=== PATIENT | male | born 1985 | race Two or more races ===

== ENCOUNTER 2017-12-01 11:04 | Emergency (ER) | payer MEDICAID ==
[~2017-12-01] VITALS: Ht 182.9 cm; Wt 90.7 kg
[2017-12-01 11:04] VITALS: BP 154/90
== END 2017-12-01 12:09 | disposition home or self-care (01) ==
LOC: ER 11:06
DX: F10.129 Alcohol abuse with intoxication, unspecified (principal); F41.9 Anxiety disorder, unspecified; F17.210 Nicotine dependence, cigarettes, uncomplicated; Y90.9 Presence of alcohol in blood, level not specified
CPT/HCPCS: 99284; A4606; Z7610

== ENCOUNTER 2018-11-23 09:21 | Emergency (ER) | payer OTHER ==
[~2018-11-23] VITALS: Ht 182.9 cm; Wt 81.6 kg
[2018-11-23] MEDS ORDERED: methylPREDNISolone SOD SUCC 40 MG/ML VIAL ONE (09:47)
--- NOTE | 2018-11-23 09:54 | NUR ---
IM shot given - see EMAR
--- NOTE | 2018-11-23 09:55 | NUR ---
Patient discharged to home in stable condition. Written and verbal after care instructions given. Patient verbalizes understanding of instruction.
[2018-11-23 09:56] VITALS: BP 132/82
[2018-11-23] MEDS ORDERED: methylPREDNISolone ACETATE 80 MG/ML VIAL IM ONE (10:00)
== END 2018-11-23 09:57 | disposition home or self-care (01) ==
LOC: ER 09:28
DX: L50.9 Urticaria, unspecified (principal); F10.10 Alcohol abuse, uncomplicated; F17.200 Nicotine dependence, unspecified, uncomplicated; Y90.9 Presence of alcohol in blood, level not specified
CPT/HCPCS: 96372; 99283; A4606; J2920; Z7610

== ENCOUNTER 2019-02-23 04:37 | Emergency (ER) | payer OTHER ==
[~2019-02-23] VITALS: Ht 170.2 cm; Wt 96.6 kg
--- NOTE | 2019-02-23 04:48 | NUR ---
BIB SELF WITH . AAOX4. NAD. NO SOB, BREATHING EVEN AND UNLABORED. DENIES CHEST PAIN BUT FEELS PRESSURE. CAME WITH C/O TIGHTNESS AT THE BACK OF THE NECK AND NUMBNESS AND WEAKNESS ON L ARM. BP WAS REPORTED BY AT SBP IN 160S. NO NEUROLOGIC DEFICIT UPON ASSESSMENT. PT SPEAKS MINIMAL [place], BEDSIDE FOR TRANSLATTION. MD AT BEDSIDE FOR EVAL.
[2019-02-23] MEDS ORDERED: METOCLOPRAMIDE HCL 10 MG/2 ML VIAL IV ONE (05:00)
[2019-02-23 05:03] LABS: BASOPHILS % (AUTO) 0.5 % (0.0-2.0); EOSINOPHILS % (AUTO) 1.2 % (0.0-6.0); HEMATOCRIT 43 % (39-51); HEMOGLOBIN 14.9 g/dL (13.5-17.5); LYMPHOCYTES # (AUTO) 1.4 /CMM (0.8-4.8); LYMPHOCYTES % (AUTO) 18.2 % (20.0-44.0); MEAN CORPUSCULAR HGB CONC 35 g/dl (31.0-36.0); MEAN CORPUSCULAR VOLUME 89 fL (80-96); MONOCYTES # (AUTO) 0.4 /CMM (0.1-1.30); MONOCYTES % (AUTO) 4.6 % (2.0-12.0); NEUTROPHILS # (AUTO) 5.9 /CMM (1.8-8.9); NEUTROPHILS % (AUTO) 75.5 % (43.0-81.0); PLATELET COUNT (AUTO) 199 /CMM (150-450); RED BLOOD CELL COUNT(AUTO) 4.79 MIL/uL (4.5-6.0); WHITE BLOOD COUNT (AUTO) 7.8 K/uL (4.3-11.0)
--- NOTE | 2019-02-23 05:05 | NUR ---
IV LINE OBTAINED ON R AC 18G. BLOOD DRAW AND GIVEN TO HEAD CASHIER AT BEDSIDE
[2019-02-23] MEDS ORDERED: METOCLOPRAMIDE HCL 10 MG/2 ML VIAL ONE (05:07)
[2019-02-23 05:11] LABS: CALCIUM, SERUM 8.9 mg/dL (8.5-10.1); CARBON DIOXIDE 27 mmol/L (21-32); CHLORIDE 103 mmol/L (98-107); GLUCOSE 112 mg/dL (74-106); SODIUM SERUM 139 mmol/L (136-145); UREA NITROGEN, BLOOD 17 mg/dL (7-18)
--- NOTE | 2019-02-23 05:14 | NUR ---
PT BEING WHEELED TO RADIOLOGY VIA [facility]
--- NOTE | 2019-02-23 05:21 | NUR ---
PT BACK FROM RADIOLOGY
[2019-02-23 05:48] VITALS: BP 106/60
--- NOTE | 2019-02-23 05:56 | NUR ---
DPatient discharged to home in stable condition. Written and verbal after care instructions given. Patient verbalizes understanding of instruction.
[2019-02-23] MEDS ORDERED: ADENOSINE 6 MG/2 ML VIAL ONE (23:09)
== END 2019-02-23 05:57 | disposition home or self-care (01) ==
LOC: ER 04:40
DX: R51 Headache (principal); I10 Essential (primary) hypertension; F10.10 Alcohol abuse, uncomplicated; F17.200 Nicotine dependence, unspecified, uncomplicated; Y90.9 Presence of alcohol in blood, level not specified
CPT/HCPCS: 36415; 70450; 80048; 84484; 85025; 93005 ×2; 96374; 99284; J2765; J0153